=== PATIENT | female | born 1960 | race Caucasian/White ===

== ENCOUNTER 2024-01-30 17:39 | Emergency (ER) | payer OTHER ==
[~2024-01-30] VITALS: Ht 165.1 cm; Wt 74.4 kg
[2024-01-30 17:40] VITALS: BP_SYST 118; PULSE 86; RESP 18; TEMP 97.8; O2SAT 98
[2024-01-30] MEDS ORDERED: DICL20GE TP (19:45)
[2024-01-30] MEDS ORDERED: DICL50TA9 PO (19:45)
[2024-01-30] MEDS: KETOROLAC TROMETHAMINE 30 MG VIAL IM ONE (19:46)
[2024-01-30 20:02] VITALS: BP_SYST 118; PULSE 86; RESP 18; TEMP 97.8; O2SAT 98
== END 2024-01-30 20:02 | disposition home or self-care (01) ==
LOC: SED 17:39
DX: S83.91XA Sprain of unspecified site of right knee, initial encounter (principal); K21.9 Gastro-esophageal reflux disease without esophagitis; E03.9 Hypothyroidism, unspecified; X58.XXXA Exposure to other specified factors, initial encounter; Y93.89 Activity, other specified; Y92.89 Other specified places as the place of occurrence of the external cause; Y99.8 Other external cause status
CPT/HCPCS: 99283; 29505; 73564; 96372; J1885